=== PATIENT | male | born 1940 | race Caucasian/White ===

== ENCOUNTER 2022-04-07 13:30 | Outpatient (RCR) | payer MEDICARE, SELFPAY ==
[2022-02-09 15:55] VITALS: PULSE 66
== END 2022-04-12 11:47 | disposition home or self-care (01) ==
LOC: ANHCPREHAB 13:30
PROVIDERS: PCP Family Medicine
DX: Z95.2 Presence of prosthetic heart valve (principal)
CPT/HCPCS: 93798